=== PATIENT | male | born 1955 | race African-American/Black ===

== ENCOUNTER 2021-06-06 05:54 | Observation (INO) ==
[2021-06-01 11:20] LABS: Basophils % 0.9 % (0.0-0.8); Eosinophils # 0.1 10*3/uL (0.0-0.87); Eosinophils % 2.4 % (0.00-10.9); Hematocrit 37.6 VOL% (42.0-52.0); Hemoglobin 11.6 GM/DL (14.0-18.0); Immature Granulocytes % 0.4 %; Immature Granulocytes Absolute 0.02 #; Lymphocytes # 0.5 10*3/uL (1.4-4.0); Lymphocytes % 11.8 % (21.2-54.2); Mean Corpuscular HGB Conc 30.9 GM/DL (32-36); Mean Corpuscular Volume 95.7 FL (87-102); Mean Platelet Volume 11.7 FL (9.6-12.0); Monocytes % 22.5 % (1.7-12.7); Platelet Count 147 T/CUMM (130-400); Red Blood Count 3.93 MC/CUMM (3.8-5.5); Red Cell Distribution Width 15.4 % (9.3-17.3); White Blood Count 4.6 T/CUMM (4-12)
[2021-06-01 11:36] LABS: Albumin 3.6 G/DL (3.4-5.0); Bilirubin,Total 0.9 MG/DL (0.20-1.00); Calcium 8.7 MG/DL (8.5-10.1); Total Protein 7.6 G/DL (6.4-8.2)
[2021-06-01 11:40] LABS: Eosinophils 2 % (0-10); Hypochromasia 1+; Lymphocytes 16 % (20-55); Microcytosis 1+; Platelet Estimate Adequate; Segmented Neutrophils 56 % (50-85); Total Cells Counted 100
[2021-06-06 06:27] LABS: Hematocrit 36.7 VOL% (42.0-52.0); Hemoglobin 11.3 GM/DL (14.0-18.0)
[2021-06-06] MEDS ORDERED: HEPARIN 5,000 UNIT/1 ML VIAL ONE (06:34)
[2021-06-06] MEDS ORDERED: BUPIVACAINE MPF 0.25% 30 ML VIAL ONE (06:34)
[2021-06-06] MEDS ORDERED: LIDOCAINE 1% 20 ML VIAL ONE (06:35)
[2021-06-06] MEDS ORDERED: fentaNYL 100 MCG/2 ML VIAL ONE (06:44)
[2021-06-06] MEDS ORDERED: LIDOCAINE 2% 5 ML VIAL ONE (06:44)
[2021-06-06] MEDS ORDERED: propofoL 200 MG/20 ML VIAL IV ONE (06:44)
[2021-06-06] MEDS ORDERED: MIDAZOLAM 2 MG/2 ML VIAL ONE (06:45)
[2021-06-06] MEDS: SODIUM CHLORIDE 0.9% 250 ML IV SCH ×2 (06:55→07:31)
[2021-06-06] MEDS ORDERED: ePHEDrine 50 MG/ML VIAL ONE (07:26)
[2021-06-06] MEDS ORDERED: ATROPINE 0.4 MG/1 ML VIAL ONE (07:47)
[2021-06-06] MEDS ORDERED: CALCIUM CHLORIDE 1,000 MG/10 ML VIAL IV ONE (07:47)
[2021-06-06] MEDS ORDERED: NITROGLYCERIN 2% OINT 1 INCH/GM PACK TOP ONE (07:57)
[2021-06-06 08:34] LABS: ABG Base Excess 4.8 MMOL/L (-2.5-2.5); ABG HCO3 28.7 MMOL/L (20-26); ABG Oxygen Saturation 99.3 % (95-100); ABG PCO2 49.7 MM HG (35-48); ABG PH 7.398 (7.35-7.45); ABG TCO2 27.4 MMOL/L (23-27)
[2021-06-06 09:04] LABS: Basophils % 0.4 % (0.0-0.8); Eosinophils # 0.1 10*3/uL (0.0-0.87); Hematocrit 34.8 VOL% (42.0-52.0); Hemoglobin 10.9 GM/DL (14.0-18.0); Immature Granulocytes % 0.4 %; Immature Granulocytes Absolute 0.02 #; Lymphocytes # 0.4 10*3/uL (1.4-4.0); Lymphocytes % 7.2 % (21.2-54.2); Mean Corpuscular HGB Conc 31.3 GM/DL (32-36); Mean Corpuscular Volume 95.6 FL (87-102); Mean Platelet Volume 10.7 FL (9.6-12.0); Monocytes % 18.1 % (1.7-12.7); Neutrophils % 72.9 % (38.7-73.9); Platelet Count 128 T/CUMM (130-400); Red Blood Count 3.64 MC/CUMM (3.8-5.5); Red Cell Distribution Width 15.2 % (9.3-17.3); White Blood Count 5.3 T/CUMM (4-12)
[2021-06-06 09:36] LABS: Anisocytosis 1+; Band Neutrophils 1 % (0-10); Eosinophils 2 % (0-10); Lymphocytes 10 % (20-55); Macrocytosis 1+; Ovalocytes Few; Platelet Estimate Adequate; Segmented Neutrophils 69 % (50-85); Total Cells Counted 100
[2021-06-06 09:37] LABS: Tear Drop Cells Few
[2021-06-06 09:38] LABS: CKMB % 2.4 %; Osmolality,Calculated 282.2 MOS/KG (273-304); Potassium 3.7 MMOL/L (3.5-5.1)
[2021-06-06 09:54] LABS: High Sensitive Troponin I* 254.3 ng/L (0-78)
[2021-06-06] MEDS ORDERED: hydrALAZINE 20 MG/1 ML VIAL ONE (10:30)
[2021-06-06] MEDS ORDERED: hydrALAZINE 20 MG/1 ML VIAL IV ONE ×2 (10:32→11:03)
[2021-06-06] MEDS ORDERED: BISACODYL 5 MG TABLET PO PRN (11:41)
[2021-06-06] MEDS ORDERED: ACETAMINOPHEN 325 MG TABLET PO PRN (11:41)
[2021-06-06] MEDS ORDERED: ALBUTEROL/IPRATROPIUM 3 ML NEB RESP TX PRN (11:41)
[2021-06-06] MEDS ORDERED: ONDANSETRON 4 MG/2 ML VIAL IV PRN (11:41)
[2021-06-06] MEDS ORDERED: GLUCAGON 1 MG VIAL IM PRN (11:49)
[2021-06-06] MEDS ORDERED: DEXTROSE 50% 25 GM/50 ML VIAL IV PRN (11:49)
[2021-06-06 15:41] LABS: CKMB % 2.6 %
[2021-06-06 15:44] LABS: High Sensitive Troponin I* 348.3 ng/L (0-78)
[2021-06-06] MEDS: amLODIPine 5 MG TABLET PO SCH (16:04)
[2021-06-06] MEDS ORDERED: INSULIN GLARGINE 100 UNIT/ML SUBCUT SCH (21:00)
[2021-06-06 21:05] LABS: CKMB % 2.9 %
[2021-06-06 21:06] LABS: High Sensitive Troponin I* 311.9 ng/L (0-78)
[2021-06-06] MEDS: METOPROLOL TARTRATE 100 MG TABLET PO SCH (22:11)
[2021-06-07] MEDS ORDERED: hydrALAZINE 20 MG/1 ML VIAL IV PRN (00:36)
[2021-06-07 03:26] LABS: Basophils % 0.5 % (0.0-0.8); Eosinophils # 0.1 10*3/uL (0.0-0.87); Eosinophils % 0.9 % (0.00-10.9); Hematocrit 32.8 VOL% (42.0-52.0); Hemoglobin 10.5 GM/DL (14.0-18.0); Immature Granulocytes % 0.3 %; Immature Granulocytes Absolute 0.02 #; Lymphocytes # 0.5 10*3/uL (1.4-4.0); Lymphocytes % 8.3 % (21.2-54.2); Mean Corpuscular Volume 94.3 FL (87-102); Mean Platelet Volume 11.9 FL (9.6-12.0); Monocytes % 17.5 % (1.7-12.7); Neutrophils % 72.5 % (38.7-73.9); Platelet Count 119 T/CUMM (130-400); Red Blood Count 3.48 MC/CUMM (3.8-5.5); Red Cell Distribution Width 15.3 % (9.3-17.3); White Blood Count 6.4 T/CUMM (4-12)
[2021-06-07 03:31] LABS: CKMB % 2.8 %
[2021-06-07 03:37] LABS: High Sensitive Troponin I* 286.7 ng/L (0-78); Osmolality,Calculated 289.1 MOS/KG (273-304); Potassium 3.9 MMOL/L (3.5-5.1)
[2021-06-07 03:58] LABS: Eosinophils 3 % (0-10); Lymphocytes 7 % (20-55); Platelet Estimate Decreased; Segmented Neutrophils 69 % (50-85); Total Cells Counted 100
[2021-06-07 03:59] LABS: Hypochromasia 1+; Microcytosis 1+
[2021-06-07] MEDS ORDERED: ENOXAPARIN 30 MG/0.3 ML SYRINGE SUBCUT SCH (06:00)
[2021-06-07] MEDS: hydroCHLOROthiazide 12.5 MG CAPSULE PO SCH ×2 (08:01→13:03)
[2021-06-07] MEDS: METOPROLOL TARTRATE 100 MG TABLET PO SCH ×2 (08:01→13:03)
[2021-06-07] MEDS: amLODIPine 5 MG TABLET PO SCH ×2 (08:01→13:04)
[2021-06-07] MEDS: PANTOPRAZOLE 40 MG TABLET PO SCH ×2 (08:03→13:04)
[2021-06-07 12:57] VITALS: BP 211/97
== END 2021-06-07 15:52 | disposition home or self-care (01) ==
LOC: N.OR 05:54 → N.TELES 05:54 → N.SDSINP 05:54 → N.TELES 13:11
PROVIDERS: ADMIT Student in an Organized Health Care Education/Training Program; ATTEND Student in an Organized Health Care Education/Training Program
PROC: VAVDCFI (2021-06-06 07:05)